=== PATIENT | male | born 1985 | race Caucasian/White ===

== ENCOUNTER 2017-05-29 23:56 | Emergency (ER) | payer BC, OTHER ==
--- NOTE | 2017-05-30 01:02 | ED ---
Upper Extremity HPI - General Chief Complaint: Extremity Injury, Upper Stated Complaint: R Shoulder Injury Time Seen by Provider: 05/30/17 00:14 Source: patient Mode of arrival: ambulatory Limitations: no limitations - History of Present Illness Initial Comments: This patient is a 31-year-old man who presents to be evaluated for right shoulder pain that is been going on since sometime in March, when he injured his shoulder at work. 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 He indicates the area just above the right scapula and the right trapezius area. The patient states that the pain is somewhat variable, worsening if he attempts to raise his arm above the level of his shoulder. He is denying any weakness or numbness of the extremity. He states that the pain seems to get better with resting the right arm. Patient is right-handed. He has not been seen previously for this injury. MD Complaint: Injury to:: right, shoulder Onset/Timin -: month(s) Other Extremity Injury: Shoulder: Right Other Injuries: none Handedness: right Place: work Improves With: immobilization Worsens With: movement of extremity Context: injury Associated Symptoms: heard/felt popping sensat - Related Data Previous Rx's Medication Instructions Recorded Ibuprofen [Motrin] 600 mg PO Q8HR PRN #20 tab 05/30/17 traMADol HCl [Ultram] 50 mg PO Q6H PRN #20 tab 05/30/17 Allergies Allergy/AdvReac Type Severity Reaction Status Date / Time No Known Allergies Allergy Verified 05/30/17 00:08 Review of Systems ROS Statement: Those systems with pertinent positive or pertinent negative responses have been documented in the HPI. ROS Other: All systems not noted in ROS Statement are negative. Constitutional: Denies: fever, weakness Respiratory: Denies: dyspnea Cardiovascular: Denies: chest pain, palpitations Musculoskeletal: Reports: as per HPI, arthralgia. Denies: back pain, joint swelling Neurological: Denies: headache, weakness, numbness, paresthesias Past Medical History Past Medical History: No Reported History History of Any Multi-Drug Resistant Organisms: None Reported Past Surgical History: No Surgical Hx Reported Past Psychological History: Anxiety, Depression Smoking Status: Current every day smoker Past Alcohol Use History: Occasional Past Drug Use History: None Reported General Exam Limitations: no limitations General appearance: alert, in no apparent distress Head exam: Present: atraumatic, normocephalic Eye exam: Present: normal appearance Neck exam: Present: normal inspection, full ROM. Absent: tenderness, meningismus Extremities exam: Present: normal inspection, tenderness, normal capillary refill Right Shoulder Exam: Present: normal inspection, tenderness, other (The patient has some mild tenderness to palpation of the right trapezius muscle. he has pain with internal rotation at the shoulder.). Absent: full ROM, swelling, abrasion , laceration, ecchymosis, deformity, crepitus, dislocation, erythema, tenderness over AC joint Upper Arm exam: Present: normal inspection, full ROM. Absent: tenderness, swelling Elbow exam: Present: normal inspection, full ROM. Absent: tenderness, swelling Forearm Wrist exam: Present: normal inspection, full ROM. Absent: tenderness, swelling Hand Wrist exam: Present: normal inspection, full ROM. Absent: tenderness, swelling Neuro motor exam: Present: wrist extension intact, thumb opposition intact, thumb IP flexion intact, thumb adduction intact, fingers 2-5 abduction intact Neurosensory exam: Present: radial nerve intact, ulnar nerve intact, median nerve intact Vascular: Present: normal capillary refill Back exam: Absent: paraspinal tenderness, vertebral tenderness Neurological exam: Present: alert. Absent: motor sensory deficit Skin exam: Present: warm, dry, intact, normal color. Absent: rash Course Vital Signs 05/30/17 00:06 Temperature 98.2 F Pulse Rate 84 Respiratory 16 Rate Blood Pressure 122/72 O2 Sat by Pulse 99 Oximetry Disposition Clinical Impression: Shoulder injury Disposition: HOME SELF-CARE Condition: Good Instructions: Rotator Cuff Injury (ED) Prescriptions: Ibuprofen [Motrin] 600 mg PO Q8HR PRN #20 tab PRN Reason: Pain traMADol HCl [Ultram] 50 mg PO Q6H PRN #20 tab PRN Reason: Pain Referrals: None,Stated [Primary Care Provider] - 1-2 days
--- NOTE | 2017-05-30 01:06 | XR ---
EXAMINATION TYPE: XR shoulder complete RT DATE OF EXAM: 05/30/2017 COMPARISON: NONE HISTORY: Shoulder pain TECHNIQUE: 3 views FINDINGS: I see no fracture nor dislocation. Joint spaces are normal. There are no pathologic calcifi cations. IMPRESSION: Negative right shoulder exam.
[2017-05-30 01:33] VITALS: BP 118/59; PULSE 67; RESP 18; TEMP 98
== END 2017-05-30 01:32 | disposition home or self-care (01) ==
LOC: EC 23:56
DX: S49.91XA Unspecified injury of right shoulder and upper arm, initial encounter (principal); F17.200 Nicotine dependence, unspecified, uncomplicated; X50.0XXA Overexertion from strenuous movement or load, initial encounter; Y93.89 Activity, other specified; Y92.69 Other specified industrial and construction area as the place of occurrence of the external cause; Y99.0 Civilian activity done for income or pay
CPT/HCPCS: 99283

== ENCOUNTER 2019-04-18 17:09 | Emergency (ER) | payer BC, OTHER ==
[2019-04-18 17:36] VITALS: TEMP 99.1
[2019-04-18] MEDS ORDERED: ORPHENADRINE 30 MG/ML 2 ML VIAL IM STA (18:37)
[2019-04-18] MEDS ORDERED: KETOROLAC 30 MG/ML 1 ML VIAL IM STA (18:37)
--- NOTE | 2019-04-18 18:41 | ED ---
General Adult HPI - General Chief complaint: Back Pain/Injury Stated complaint: [facility] - back injury Time Seen by Provider: 04/18/19 18:09 Source: patient, RN notes reviewed Mode of arrival: ambulatory Limitations: no limitations - History of Present Illness Initial comments: 33-year-old male presents to the emergency department for a chief complaint of back pain. Patient states he has had back pain for about 4 hours. States he was bending down to pick something up and felt a sudden pain in his low back. States the pain radiates down to his bilateral knees with mild tingling. Denies numbness of the saddle area. Denies any weakness of the lower extremities. Denies any bladder or bowel changes. Denies fevers or chills. States he saw his doctor and they wanted him to come to the emergency department for x- rays.Patient has no other complaints at this time including shortness of breath, chest pain, abdominal pain, nausea or vomiting, headache, or visual changes. - Related Data Previous Rx's Medication Instructions Recorded Ibuprofen [Motrin] 600 mg PO Q8HR PRN #20 tab 05/30/17 traMADol HCl [Ultram] 50 mg PO Q6H PRN #20 tab 05/30/17 Allergies Allergy/AdvReac Type Severity Reaction Status Date / Time No Known Allergies Allergy Verified 05/30/17 00:08 Review of Systems ROS Statement: Those systems with pertinent positive or pertinent negative responses have been documented in the HPI. ROS Other: All systems not noted in ROS Statement are negative. Past Medical History Past Medical History: No Reported History History of Any Multi-Drug Resistant Organisms: None Reported Past Surgical History: No Surgical Hx Reported Past Psychological History: Anxiety, Depression, PTSD Smoking Status: Current every day smoker Past Alcohol Use History: Occasional Past Drug Use History: None Reported General Exam Limitations: no limitations General appearance: alert, in no apparent distress (Patient sitting in bed crosslegged talking on the phone, no distress) Head exam: Present: atraumatic, normocephalic, normal inspection Eye exam: Present: normal appearance, PERRL, EOMI. Absent: scleral icterus, conjunctival injection, periorbital swelling ENT exam: Present: normal exam, mucous membranes moist Neck exam: Present: normal inspection, full ROM. Absent: tenderness, meningismus, lymphadenopathy Respiratory exam: Present: normal lung sounds bilaterally. Absent: respiratory distress, wheezes, rales, rhonchi, stridor Cardiovascular Exam: Present: regular rate, normal rhythm, normal heart sounds. Absent: systolic murmur, diastolic murmur, rubs, gallop, clicks GI/Abdominal exam: Present: soft, normal bowel sounds. Absent: distended, tenderness, guarding, rebound, rigid Extremities exam: Present: normal capillary refill (cap refill less than 2 seconds, DP pulse 2+ and lower extremities and equal bilaterally), other (Sensation intact in lower extremities bilaterally. Strength is 5 out of 5 in lower extremities bilaterally) Back exam: Absent: CVA tenderness (R), CVA tenderness (L), vertebral tenderness (Patient has pain with flexion of the lumbar spine but is able to flex to about 60) Course Vital Signs 04/18/19 04/18/19 04/18/19 17:34 17:35 18:35 Temperature 99.1 F Pulse Rate 103 H 95 Respiratory 19 20 20 Rate Blood Pressure 147/80 145/78 O2 Sat by Pulse 100 100 Oximetry Medical Decision Making - Medical Decision Making Neurovascular status intact in the lower extremities. Sensation intact throughout lower extremities. Patient does not have any red flag symptoms. Patient was sent over for x-ray of the lumbar spine by his doctor. I discussed that this is unlikely to demonstrate any bony abnormalities as mechanism is not consistent with fracture and he may need an outpatient MRI. Patient however says his doctor told him to get an x-ray and he wants this done. X-ray of the lumbar spine shows a normal lumbar spine. No fracture. Patient was given Toradol and Norflex here in the emergency department. Patient will be given outpatient muscle relaxers however discussed not driving or operating machinery while taking these. Patient will also be given steroids. He will follow up with his appointment on Thursday. He will return here if he has any worsening symptoms. I discussed these in depth with patient including numbness of the saddle area, loss of bladder or bowel, weakness of the legs. Disposition Clinical Impression: Mechanical back pain Disposition: HOME SELF-CARE Condition: Good Instructions (If sedation given, give patient instructions): Acute Low Back Pain (ED) Additional Instructions: Please follow up at your appointment in 2 days. Continue to take Motrin and Tylenol for pain. Take steroid as directed and muscle relaxer as needed. Do not drive or operate machinery while taking muscle relaxer. Make sure to eat something while taking both Motrin and the steroid as this could cause stomach discomfort. If you have any worsening symptoms return to the emergency department. These may include but are not limited to numbness of the saddle area, weakness of the legs, worsening pain, changes in bladder or bowel function, or fevers. Is patient prescribed a controlled substance at d/c from ED?: No Referrals: Minerva Kohler MD [REFERRING] - 1-2 days Time of Disposition: 19:07
--- NOTE | 2019-04-18 18:53 | XR ---
EXAMINATION TYPE: XR lumbar spine 2 or 3V DATE OF EXAM: 04/18/2019 COMPARISON: NONE HISTORY: Back pain TECHNIQUE: 3 views FINDINGS: Lumbar vertebra have fairly normal alignment. Disc spaces are normal. Posterior elements ar e intact. Sacroiliac joints appear normal. IMPRESSION: Normal lumbar spine exam. No fracture.
[2019-04-18 18:54] VITALS: RESP 20
[2019-04-18 18:55] VITALS: BP 145/78; PULSE 95
== END 2019-04-18 19:19 | disposition home or self-care (01) ==
LOC: EC 17:09
DX: M54.5 Low back pain (principal); F17.200 Nicotine dependence, unspecified, uncomplicated
CPT/HCPCS: 72100; 99283; 96372 ×2; J2360; J1885

== ENCOUNTER 2022-08-21 19:01 | Emergency (ER) | payer BC, OTHER ==
--- NOTE | 2022-08-21 20:09 | ED ---
Weakness HPI - General Chief complaint: Weakness Stated complaint: dizzy weakness Time Seen by Provider: 08/21/22 20:06 Source: patient, RN notes reviewed Mode of arrival: ambulatory Limitations: no limitations - History of Present Illness Initial comments: Patient 36-year-old male presents to the emergency department for weakness. Patient has upper respiratory symptoms since Thursday including congestion, productive cough, fever. He also reports nausea, vomiting, generalized weakness, lightheadedness. No chest pain or shortness of breath. No abdominal pain. The whole family is sick at home with cold symptoms. - Related Data Previous Rx's Medication Instructions Recorded Ibuprofen [Motrin] 600 mg PO Q8HR PRN #20 tab 05/30/17 traMADol HCl [Ultram] 50 mg PO Q6H PRN #20 tab 05/30/17 Cyclobenzaprine [Flexeril] 10 mg PO TID #10 tab 04/18/19 predniSONE 50 mg PO DAILY #5 tablet 04/18/19 Azithromycin [Zithromax Z Pack] 1 tab PO DIRECTED #6 tab 08/21/22 Metoclopramide [Reglan] 10 mg PO TID PRN #15 tab 08/21/22 Allergies Allergy/AdvReac Type Severity Reaction Status Date / Time No Known Allergies Allergy Verified 08/21/22 19:17 Review of Systems ROS Statement: Those systems with pertinent positive or pertinent negative responses have been documented in the HPI. ROS Other: All systems not noted in ROS Statement are negative. Past Medical History Past Medical History: No Reported History History of Any Multi-Drug Resistant Organisms: None Reported Past Surgical History: No Surgical Hx Reported Past Psychological History: Anxiety, Depression, PTSD Past Alcohol Use History: Occasional Past Drug Use History: None Reported General Exam - General Exam Comments Initial Comments: Visual Physical Exam Vital signs reviewed General: Well-appearing, nontoxic, no acute distress. Head: Normocephalic, atraumatic Eyes: PERRLA, EOMI ENT: Airway patent Chest: Nonlabored breathing Skin: No visual rash, normal skin tone Neuro: Alert and oriented 3 Musculoskeletal: No gross abnormalities Limitations: no limitations General appearance: alert, in no apparent distress Head exam: Present: atraumatic, normocephalic, normal inspection Eye exam: Present: normal appearance, PERRL, EOMI. Absent: scleral icterus, conjunctival injection, periorbital swelling Respiratory exam: Present: wheezes (mild upper lung field). Absent: normal lung sounds bilaterally, respiratory distress, rales, rhonchi, stridor Cardiovascular Exam: Present: normal rhythm, tachycardia, normal heart sounds. Absent: regular rate, systolic murmur, diastolic murmur, rubs, gallop, clicks GI/Abdominal exam: Present: soft, normal bowel sounds. Absent: distended, tenderness, guarding, rebound, rigid Neurological exam: Present: alert, oriented X3, CN II-XII intact Psychiatric exam: Present: normal affect, normal mood Skin exam: Present: warm, dry, intact, normal color. Absent: rash Course Vital Signs 08/21/22 08/21/22 08/21/22 19:14 21:34 21:48 Temperature 99.5 F 98.6 F Pulse Rate 115 H 101 H Respiratory 16 20 20 Rate Blood Pressure 110/65 126/84 O2 Sat by Pulse 97 99 Oximetry 08/21/22 08/21/22 08/21/22 22:10 22:16 22:50 Temperature 100.2 F H Pulse Rate 100 104 H 114 H Respiratory 20 Rate Blood Pressure 129/76 O2 Sat by Pulse 97 Oximetry Medical Decision Making - Medical Decision Making Was pt. sent in by a medical professional or institution (, PA, CREDIT SPECIALIST, urgent care, hospital, or longterm...) When possible be specific @ -No Did you speak to anyone other than the patient for history (EMS, parent, family, police, friend...)? What history was obtained from this source @ -No Did you review nursing and triage notes (agree or disagree)? Why? @ -I reviewed and agree with nursing and triage notes Were old charts reviewed (outside hosp., previous admission, EMS record, old EKG, old radiological studies, urgent care reports/EKG's, longterm records)? Report findings @ -No old charts were reviewed Differential Diagnosis (chest pain, altered mental status, abdominal pain women, abdominal pain men, vaginal bleeding, weakness, fever, dyspnea, syncope, headache, dizziness, GI bleed, back pain, seizure, CVA, palpatations, mental health)? @ -URI, sinusitus,strep pharyngitis, viral pharyngitis, pneumonia, bronchitis- this list is not meant to be all-inclusive EKG interpreted by me (3pts min.). @ -As above X-rays interpreted by me (1pt min.). @ -Yes, chest x-ray negative for pneumonia and other acute process CT interpreted by me (1pt min.). @ -None done U/S interpreted by me (1pt. min.). @ -None done What testing was considered but not performed or refused? (CT, X-rays, U/S, labs)? Why? @ -None What meds were considered but not given or refused? Why? @ -None Did you discuss the management of the patient with other professionals (professionals i.e. , PA, CREDIT SPECIALIST, lab, RT, psych nurse, addiction social worker, distribution agent, teacher, space officer, binder caser)? Give summary @ -No Was smoking cessation discussed for >3mins.? @ -No Was critical care preformed (if so, how long)? @ -No Were there social determinants of health that impacted care today? How? (Homelessness, low income, unemployed, alcoholism, drug addiction, transportation, low edu. Level, literacy, decrease access to med. care, correction, rehab)? @ -No Was there de-escalation of care discussed even if they declined (Discuss DNR or withdrawal of care, Hospice)? DNR status @ -No What co-morbidities impacted this encounter? (DM, HTN, Smoking, COPD, CAD, Cancer, CVA, ARF, Chemo, Hep., AIDS, mental health diagnosis, sleep apnea, morbid obesity)? @ -None Was patient admitted / discharged? Hospital course, mention meds given and route, prescriptions, significant lab abnormalities, going to OR and other pertinent info. @ -Patient presented with upper respiratory symptoms. Patient sounds very congested. There is mild leukocytosis at 12.5, likely reactive. There is hypokalemia 2.8, I suspect secondary to vomiting. COVID-19, RSV, influenza, strep not detected. Chest x-ray negative for pneumonia. Patient given a breathing treatment for mild wheezing which improved lung sounds. Electrolytes replenished. Patient did develop a fever and mild tachycardia which I suspect is related to fever. He is not short of breath, no chest pain, no hypoxia. He had no further episodes of vomiting in the emergency department. He will be discharged with Z-Isidro for acute bronchitis and Reglan for vomiting. Discussed strict return parameters. I advised patient to follow up with primary care provider for repeat laboratory studies on Thursday. Patient states he has not a primary care provider he is encouraged filum. Undiagnosed new problem with uncertain prognosis? @ -No Drug Therapy requiring intensive monitoring for toxicity (Heparin, Nitro, Insulin, Cardizem)? @ -No Were any procedures done? @ -No Diagnosis/symptom? @ acute bronchitis Acute, or Chronic, or Acute on Chronic? @ -acute Uncomplicated (without systemic symptoms) or Complicated (systemic symptoms)? @ -uncomplicated Side effects of treatment? @ -No Exacerbation, Progression, or Severe Exacerbation? @ -No Poses a threat to life or bodily function? How? (Chest pain, USA, CT, pneumonia, PE, COPD, DKA, ARF, appy, cholecystitis, CVA, Diverticulitis, Homicidal, Suicidal, threat to staff... and all critical care pts) @ -No Dr. Puga is my attending - Lab Data Result diagrams: 08/21/22 21:31 08/21/22 23:00 Lab Results 08/21/22 08/21/22 08/21/22 Range/Units 21:12 21:12 21:31 WBC 12.5 H (3.8-10.6) k/uL RBC 5.06 (4.30-5.90) m/uL Hgb 15.2 (13.0-17.5) gm/dL Hct 41.4 (39.0-53.0) % MCV 81.9 (80.0-100.0) fL MCH 30.0 (25.0-35.0) pg MCHC 36.7 (31.0-37.0) g/dL RDW 12.5 (11.5-15.5) % Plt Count 199 (150-450) k/uL MPV 8.6 Neutrophils % 81 % Lymphocytes % 10 % Monocytes % 6 % Eosinophils % 0 % Basophils % 0 % Neutrophils # 10.1 H (1.3-7.7) k/uL Lymphocytes # 1.2 (1.0-4.8) k/uL Monocytes # 0.8 (0-1.0) k/uL Eosinophils # 0.0 (0-0.7) k/uL Basophils # 0.0 (0-0.2) k/uL Hyperchromasia Slight Sodium (137-145) mmol/L Potassium (3.5-5.1) mmol/L Chloride (98-107) mmol/L Carbon Dioxide (22-30) mmol/L Anion Gap mmol/L BUN (9-20) mg/dL Creatinine (0.66-1.25) mg/dL Est GFR (CKD-EPI)AfAm (>60 ml/min/1.73 sqM) Est GFR (CKD-EPI)NonAf (>60 ml/min/1.73 sqM) Glucose (74-99) mg/dL Calcium (8.4-10.2) mg/dL Total Bilirubin (0.2-1.3) mg/dL AST (17-59) U/L ALT (4-49) U/L Alkaline Phosphatase (38-126) U/L Total Protein (6.3-8.2) g/dL Albumin (3.5-5.0) g/dL Influenza Type A (PCR) Not Detected (Not Detectd) Influenza Type B (PCR) Not Detected (Not Detectd) RSV (PCR) Not Detected (Not Detectd) SARS-CoV-2 (PCR) Not Detected (Not Detectd) Group A Strep (PCR) NOT DETECTED (Not Detectd) 08/21/22 08/21/22 Range/Units 21:31 23:00 WBC (3.8-10.6) k/uL RBC (4.30-5.90) m/uL Hgb (13.0-17.5) gm/dL Hct (39.0-53.0) % MCV (80.0-100.0) fL MCH (25.0-35.0) pg MCHC (31.0-37.0) g/dL RDW (11.5-15.5) % Plt Count (150-450) k/uL MPV Neutrophils % % Lymphocytes % % Monocytes % % Eosinophils % % Basophils % % Neutrophils # (1.3-7.7) k/uL Lymphocytes # (1.0-4.8) k/uL Monocytes # (0-1.0) k/uL Eosinophils # (0-0.7) k/uL Basophils # (0-0.2) k/uL Hyperchromasia Sodium 133 L 132 L (137-145) mmol/L Potassium 3.7 2.8 L (3.5-5.1) mmol/L Chloride 88 L 93 L (98-107) mmol/L Carbon Dioxide 30 28 (22-30) mmol/L Anion Gap 15 11 mmol/L BUN 17 16 (9-20) mg/dL Creatinine 1.07 1.00 (0.66-1.25) mg/dL Est GFR (CKD-EPI)AfAm >90 >90 (>60 ml/min/1.73 sqM) Est GFR (CKD-EPI)NonAf >90 >90 (>60 ml/min/1.73 sqM) Glucose 109 H 111 H (74-99) mg/dL Calcium 8.7 7.7 L (8.4-10.2) mg/dL Total Bilirubin 1.2 1.0 (0.2-1.3) mg/dL AST 33 25 (17-59) U/L ALT 26 23 (4-49) U/L Alkaline Phosphatase 76 72 (38-126) U/L Total Protein 7.5 6.2 L (6.3-8.2) g/dL Albumin 4.4 3.6 (3.5-5.0) g/dL Influenza Type A (PCR) (Not Detectd) Influenza Type B (PCR) (Not Detectd) RSV (PCR) (Not Detectd) SARS-CoV-2 (PCR) (Not Detectd) Group A Strep (PCR) (Not Detectd) Disposition Clinical Impression: Acute bronchitis Disposition: HOME SELF-CARE Condition: Good Instructions (If sedation given, give patient instructions): Acute Bronchitis (ED) Additional Instructions: Take medication as directed. Increase fluid intake. I encourage you to establi sh care with a primary care provider. Return to the emergency department if you experience new, concerning, or worsening symptoms. Prescriptions: Metoclopramide [Reglan] 10 mg PO TID PRN #15 tab PRN Reason: Nausea Azithromycin [Zithromax Z Pack] 1 tab PO DIRECTED #6 tab Is patient prescribed a controlled substance at d/c from ED?: No Referrals: None,Stated [Primary Care Provider] - 1-2 days
[2022-08-21] MEDS ORDERED: SODIUM CHLORIDE 0.9% 1,000 ML IV STA (21:13)
--- NOTE | 2022-08-21 21:20 | XR ---
EXAMINATION: XR chest 2V: 08/21/2022 8:24 PM CLINICAL INDICATION: productive cough TECHNIQUE: Departmental protocol COMPARISON: None FINDINGS: The lungs are clear. The pleural spaces are negative. The cardiac silhouette is not enlarged. The remainder of the mediastinal silhouette is unremarkable. The skeletal structures and soft tissues are negative for acute findings. IMPRESSION: No definite acute radiographic process.
[2022-08-21] MEDS ORDERED: FLUTICASONE 50MCG/SPRAY NASAL 16GM EA NOSTRIL ONE (21:30)
[2022-08-21] MEDS ORDERED: ALBUTEROL NEBULIZED 2.5 MG/3 ML INHALATION STA (21:31)
[2022-08-21 21:41] VITALS: RESP 20
[2022-08-21] MEDS ORDERED: ONDANSETRON 4 MG/2 ML VIAL IVP STA (21:50)
[2022-08-21 22:13] LABS: Basophils % (A) 0 %; Eosinophils % (A) 0 %; HCT 41.4 % (39.0-53.0); HGB 15.2 gm/dL (13.0-17.5); Hyperchromasia Slight; Lymphocytes # (A) 1.2 k/uL (1.0-4.8); Lymphocytes % (A) 10 %; MCHC 36.7 g/dL (31.0-37.0); MCV 81.9 fL (80.0-100.0); Mean Platelet Volume 8.6; Monocytes # (A) 0.8 k/uL (0-1.0); Monocytes % (A) 6 %; Neutrophils # (A) 10.1 k/uL (1.3-7.7); Neutrophils % (A) 81 %; Platelet Count 199 k/uL (150-450); RBC 5.06 m/uL (4.30-5.90); RDW 12.5 % (11.5-15.5); WBC 12.5 k/uL (3.8-10.6)
[2022-08-21 22:33] LABS: ALT 26 U/L (4-49); AST 33 U/L (17-59); African American GFR (CKD) >90 (>60 ml/min/1.73 sqM); Albumin 4.4 g/dL (3.5-5.0); Alkaline Phosphatase 76 U/L (38-126); Anion Gap 15 mmol/L; Blood Urea Nitrogen 17 mg/dL (9-20); Calcium 8.7 mg/dL (8.4-10.2); Carbon Dioxide 30 mmol/L (22-30); Chloride 88 mmol/L (98-107); Glucose 109 mg/dL (74-99); Non-African American GFR(CKD) >90 (>60 ml/min/1.73 sqM); Sodium 133 mmol/L (137-145); Total Bilirubin 1.2 mg/dL (0.2-1.3); Total Protein 7.5 g/dL (6.3-8.2)
[2022-08-21 22:36] LABS: Potassium 3.7 mmol/L (3.5-5.1)
[2022-08-21] MEDS ORDERED: AZITHROMYCIN 250 MG TAB PO STA (22:44)
[2022-08-21 22:52] VITALS: BP 129/76; PULSE 114; TEMP 100.2
[2022-08-21 23:14] LABS: ALT 23 U/L (4-49); AST 25 U/L (17-59); African American GFR (CKD) >90 (>60 ml/min/1.73 sqM); Albumin 3.6 g/dL (3.5-5.0); Alkaline Phosphatase 72 U/L (38-126); Anion Gap 11 mmol/L; Blood Urea Nitrogen 16 mg/dL (9-20); Calcium 7.7 mg/dL (8.4-10.2); Carbon Dioxide 28 mmol/L (22-30); Chloride 93 mmol/L (98-107); Glucose 111 mg/dL (74-99); Non-African American GFR(CKD) >90 (>60 ml/min/1.73 sqM); Potassium 2.8 mmol/L (3.5-5.1); Sodium 132 mmol/L (137-145); Total Protein 6.2 g/dL (6.3-8.2)
[2022-08-21] MEDS ORDERED: POTASSIUM CHLORIDE ER 20 MEQ TAB.ER PO STA (23:24)
[2022-08-21] MEDS ORDERED: PANTOPRAZOLE 40 MG/10 ML VIAL IVP STA (23:25)
[2022-08-21] MEDS ORDERED: CALCIUM CARBONATE 500 MG CHEWABLE PO STA (23:25)
[2022-08-21] MEDS ORDERED: KETOROLAC 15 MG/ML 1 ML VIAL IVP STA (23:28)
== END 2022-08-22 00:16 | disposition home or self-care (01) ==
LOC: EC 19:01
DX: J20.9 Acute bronchitis, unspecified (principal); Z20.822 Contact with and (suspected) exposure to COVID-19; Z86.59 Personal history of other mental and behavioral disorders
CPT/HCPCS: 36415; 94640; 87651; 80053; 85025; 87636; 71046; 99285; 96374; 96375 ×2; 96361; J2405; J1885; C9113

== ENCOUNTER 2022-12-21 03:21 | Emergency (ER) | payer BC ==
[2022-12-21 03:31] VITALS: BP 123/80; PULSE 96; RESP 18; TEMP 98
[2022-12-21] MEDS ORDERED: LIDOCAINE 4% CREAM 5 GM TUBE TOPICAL STA (03:49)
[2022-12-21] MEDS ORDERED: LIDOCAINE 2% GLYDO JELLY 11 ML APPL MUCOUS MEM ONE (03:53)
--- NOTE | 2022-12-21 04:06 | ED ---
General Adult HPI - General Chief complaint: Skin/Abscess/Foreign Body Stated complaint: Blisters all over Time Seen by Provider: 12/21/22 03:35 Source: patient Mode of arrival: ambulatory Limitations: no limitations - History of Present Illness Initial comments: 37-year-old male with no reported past medical history who presents to the emergency department with a rash. States that he has developed blisters all over his body. He reports that they are on his face, in his mouth, on his hands and feet as well as his buttock. States that his daughter was recently diagnosed with hpow-xuwn-eup-mouth. He is unsure if adults are able to contract the virus. He does admit to some painful swallowing. He has not been taking any medications for his symptoms. He is not immunocompromised. Denies fevers. No nausea or vomiting. Denies diarrhea. No abdominal pain. No chest pain or shortness of breath. No other alleviating, precipitating or modifying factors - Related Data Previous Rx's Medication Instructions Recorded Ibuprofen [Motrin] 600 mg PO Q8HR PRN #20 tab 05/30/17 traMADol HCl [Ultram] 50 mg PO Q6H PRN #20 tab 05/30/17 Cyclobenzaprine [Flexeril] 10 mg PO TID #10 tab 04/18/19 predniSONE 50 mg PO DAILY #5 tablet 04/18/19 Azithromycin [Zithromax Z Pack] 1 tab PO DIRECTED #6 tab 08/21/22 Metoclopramide [Reglan] 10 mg PO TID PRN #15 tab 08/21/22 Lidocaine 4% Cream [Lmx 4] 1 applic TOPICAL TID PRN #30 gm 12/21/22 Lidocaine Viscous 2% [Xylocaine 10 ml MUCOUS MEM BID PRN #150 ml 12/21/22 Viscous] Mupirocin 2% Oint [Bactroban 2% 1 applic TOPICAL TID 5 Days #22 gm 12/21/22 Oint] Allergies Allergy/AdvReac Type Severity Reaction Status Date / Time moxalactam Allergy Rash/Hives Verified 12/21/22 03:32 Review of Systems ROS Statement: Those systems with pertinent positive or pertinent negative responses have been documented in the HPI. ROS Other: All systems not noted in ROS Statement are negative. Past Medical History Past Medical History: No Reported History History of Any Multi-Drug Resistant Organisms: None Reported Past Surgical History: No Surgical Hx Reported Past Psychological History: Anxiety, Depression, PTSD Smoking Status: Former smoker Past Alcohol Use History: Occasional Past Drug Use History: None Reported General Exam Limitations: no limitations General appearance: alert, in no apparent distress Head exam: Present: atraumatic, normocephalic, normal inspection Eye exam: Present: normal appearance, PERRL, EOMI. Absent: scleral icterus, conjunctival injection, periorbital swelling ENT exam: Present: normal exam, mucous membranes moist Neck exam: Present: normal inspection. Absent: tenderness, meningismus, lymphadenopathy Respiratory exam: Present: normal lung sounds bilaterally. Absent: respiratory distress, wheezes, rales, rhonchi, stridor Cardiovascular Exam: Present: regular rate, normal rhythm, normal heart sounds. Absent: systolic murmur, diastolic murmur, rubs, gallop, clicks GI/Abdominal exam: Present: soft, normal bowel sounds. Absent: distended, tenderness, guarding, rebound, rigid Extremities exam: Present: normal inspection, full ROM, normal capillary refill. Absent: tenderness, pedal edema, joint swelling, calf tenderness Back exam: Present: normal inspection Neurological exam: Present: alert, oriented X3, CN II-XII intact Psychiatric exam: Present: normal affect, normal mood Skin exam: Present: warm, dry, normal color, rash (Patient has a rash which is noted on his scalp, conde, intraoral, palmar and plantar surfaces of the hands and feet. Patient also has some lesions on his gluteal cleft. They are vesicular and scabbed over) Course Vital Signs 12/21/22 03:29 Temperature 98 F Pulse Rate 96 Respiratory 18 Rate Blood Pressure 123/80 O2 Sat by Pulse 99 Oximetry Medical Decision Making - Medical Decision Making Was pt. sent in by a medical professional or institution (, PA, LINE OPERATOR, urgent care, hospital, or long term...) When possible be specific @ -No Did you speak to anyone other than the patient for history (EMS, parent, family, police, friend...)? What history was obtained from this source @ -No Did you review nursing and triage notes (agree or disagree)? Why? @ -I reviewed and agree with nursing and triage notes Were old charts reviewed (outside hosp., previous admission, EMS record, old EKG, old radiological studies, urgent care reports/EKG's, long term records)? Report findings @ -No old charts were reviewed Differential Diagnosis (chest pain, altered mental status, abdominal pain women, abdominal pain men, vaginal bleeding, weakness, fever, dyspnea, syncope, headache, dizziness, GI bleed, back pain, seizure, CVA, palpatations, mental health, musculoskeletal)? @ -Shingles, chickenpox, acns-clml-ozx-mouth, impetigo EKG interpreted by me (3pts min.). @ -Not done X-rays interpreted by me (1pt min.). @ -None done CT interpreted by me (1pt min.). @ -None done U/S interpreted by me (1pt. min.). @ -None done What testing was considered but not performed or refused? (CT, X-rays, U/S, labs)? Why? @ -None What meds were considered but not given or refused? Why? @ -None Did you discuss the management of the patient with other professionals (professionals i.e. , PA, LINE OPERATOR, lab, RT, psych nurse, social media community manager, creative manager, teacher, railroad police officer, renal case manager)? Give summary @ -No Was smoking cessation discussed for >3mins.? @ -No Was critical care preformed (if so, how long)? @ -No Were there social determinants of health that impacted care today? How? (Homelessness, low income, unemployed, alcoholism, drug addiction, transporta tion, low edu. Level, literacy, decrease access to med. care, snf, rehab)? @ -No Was there de-escalation of care discussed even if they declined (Discuss DNR or withdrawal of care, Hospice)? DNR status @ -No What co-morbidities impacted this encounter? (DM, HTN, Smoking, COPD, CAD, Cancer, CVA, ARF, Chemo, Hep., AIDS, mental health diagnosis, sleep apnea, morbid obesity)? @ -None Was patient admitted / discharged? Hospital course, mention meds given and route, prescriptions, significant lab abnormalities, going to OR and other pertinent info. @ -Upon arrival I did evaluate the patient in room 4. Rash appears consistent with xlmq-uuix-pgs-mouth. Patient does have some honey crusted lesions which are concerning for possible overlying impetigo. Patient will be discharged home and instructed to take Motrin and Tylenol alternating for pain control. He will also be given a prescription for Bactroban that he is to use on his conde where there are honey crusted lesions. He is also given a prescription for viscous lidocaine for his oral lesions and lidocaine cream to help his skin lesions. He is aware that he is contagious. He needs to follow-up with his primary care doctor within 2-4 days or return for any new or worsening symptoms. Patient was agreeable as planned he was discharged in stable condition Undiagnosed new problem with uncertain prognosis? @ -No Drug Therapy requiring intensive monitoring for toxicity (Heparin, Nitro, Insulin, Cardizem)? @ -No Were any procedures done? @ -No Diagnosis/symptom? @ -Acute vesicular rash, acute yzzx-mvxv-sdm-mouth Acute, or Chronic, or Acute on Chronic? @ -acute Uncomplicated (without systemic symptoms) or Complicated (systemic symptoms)? @ -uncomplicated Side effects of treatment? @ -No Exacerbation, Progression, or Severe Exacerbation? @ -No Poses a threat to life or bodily function? How? (Chest pain, USA, CT, pneumonia, PE, COPD, DKA, ARF, appy, cholecystitis, CVA, Diverticulitis, Homicidal, Suicidal, threat to staff... and all critical care pts) @ -No Disposition Clinical Impression: Hand, foot and mouth disease, Impetigo Disposition: HOME SELF-CARE Condition: Stable Instructions (If sedation given, give patient instructions): Hand, Foot, and Mouth Disease (ED) Additional Instructions: Please use the lidocaine cream on your feet and buttocks. I recommend you use the antibiotic cream on your face and scalp. Alternate taking Motrin and Tylenol for pain. Use the viscous lidocaine to gargle with. Return for any new or worsening symptoms Prescriptions: Mupirocin 2% Oint [Bactroban 2% Oint] 1 applic TOPICAL TID 5 Days #22 gm Lidocaine 4% Cream [Lmx 4] 1 applic TOPICAL TID PRN #30 gm PRN Reason: Skin Irritation Lidocaine Viscous 2% [Xylocaine Viscous] 10 ml MUCOUS MEM BID PRN #150 ml PRN Reason: Mouth Irritation Is patient prescribed a controlled substance at d/c from ED?: No Referrals: None,Stated [Primary Care Provider] - 1-2 days Time of Disposition: 04:06
== END 2022-12-21 04:23 | disposition home or self-care (01) ==
LOC: EC 03:21
DX: B08.4 Enteroviral vesicular stomatitis with exanthem (principal); L01.00 Impetigo, unspecified; Z87.891 Personal history of nicotine dependence; Z86.59 Personal history of other mental and behavioral disorders; Z88.8 Allergy status to other drugs, medicaments and biological substances
CPT/HCPCS: 99282

== ENCOUNTER 2023-12-28 23:40 | Emergency (ER) | payer OTHER, BC ==
--- NOTE | 2023-12-29 00:07 | ED ---
URI HPI - General Stated Complaint: Covid Time Seen by Provider: 12/29/23 00:06 Source: patient, RN notes reviewed Mode of arrival: ambulatory Limitations: no limitations - History of Present Illness Initial Comments: 38-year-old male presented to ER with a chief complaint of cough and headache. Patient states symptoms have been going on since Thursday. Patient has been taking wqwj-dxl-nhmfnht Tylenol, Mucinex and ibuprofen for symptom control. Patient denies any difficulty breathing. Patient does report symptoms have improved mildly today. Patient's and son have similar symptoms. Present patient's son recently tested positive for COVID-19. Patient denies any other acute complaints. - Related Data Previous Rx's Medication Instructions Recorded Ibuprofen [Motrin] 600 mg PO Q8HR PRN #20 tab 05/30/17 traMADol HCl [Ultram] 50 mg PO Q6H PRN #20 tab 05/30/17 Cyclobenzaprine [Flexeril] 10 mg PO TID #10 tab 04/18/19 predniSONE 50 mg PO DAILY #5 tablet 04/18/19 Azithromycin [Zithromax Z Pack] 1 tab PO DIRECTED #6 tab 08/21/22 Metoclopramide [Reglan] 10 mg PO TID PRN #15 tab 08/21/22 Lidocaine 4% Cream [Lmx 4] 1 applic TOPICAL TID PRN #30 gm 12/21/22 Lidocaine Viscous 2% [Xylocaine 10 ml MUCOUS MEM BID PRN #150 ml 12/21/22 Viscous] Mupirocin 2% Oint [Bactroban 2% 1 applic TOPICAL TID 5 Days #22 gm 12/21/22 Oint] Amoxic-Pot Clav 875-125Mg 1 tab PO Q12HR 7 Days #14 tab 01/08/23 [Augmentin 875-125] Allergies Allergy/AdvReac Type Severity Reaction Status Date / Time meloxicam Allergy Rash/Hives Verified 12/29/23 00:46 Review of Systems ROS Statement: Those systems with pertinent positive or pertinent negative responses have been documented in the HPI. ROS Other: All systems not noted in ROS Statement are negative. Past Medical History Past Medical History: No Reported History History of Any Multi-Drug Resistant Organisms: None Reported Past Surgical History: No Surgical Hx Reported Past Psychological History: Anxiety, Depression, PTSD Smoking Status: Former smoker Past Alcohol Use History: Occasional Past Drug Use History: None Reported General Exam General appearance: alert, in no apparent distress Eye exam: Present: normal appearance, PERRL, EOMI. Absent: scleral icterus, conjunctival injection, periorbital swelling ENT exam: Present: normal exam, normal oropharynx, mucous membranes moist Neck exam: Present: normal inspection. Absent: tenderness, meningismus, lymphadenopathy Respiratory exam: Present: normal lung sounds bilaterally. Absent: respiratory distress, wheezes, rales, rhonchi, stridor Cardiovascular Exam: Present: regular rate, normal rhythm, normal heart sounds. Absent: systolic murmur, diastolic murmur, rubs, gallop, clicks Neurological exam: Present: alert, oriented X3, CN II-XII intact Skin exam: Present: warm, dry, intact, normal color. Absent: rash Course Vital Signs 12/29/23 00:41 Temperature 98.2 F Pulse Rate 90 Respiratory 17 Rate Blood Pressure 125/87 O2 Sat by Pulse 96 Oximetry Medical Decision Making - Medical Decision Making Was pt. sent in by a medical professional or institution (Dr. PA, UTILIZATION MANAGER, urgent care, hospital, or usp...) When possible be specific @ -No Did you speak to anyone other than the patient for history (EMS, parent, family, police, friend...)? What history was obtained from this source @ -No Did you review nursing and triage notes (agree or disagree)? Why? @ -I reviewed and agree with nursing and triage notes Were old charts reviewed (outside hosp., previous admission, EMS record, old EKG, old radiological studies, urgent care reports/EKG's, usp records)? Report findings @ -No old charts were reviewed Differential Diagnosis (chest pain, altered mental status, abdominal pain women, abdominal pain men, vaginal bleeding, weakness, fever, dyspnea, syncope, headache, dizziness, GI bleed, back pain, seizure, CVA, palpatations, mental health, musculoskeletal)? @ -COVID, RSV, influenza, viral sinusitis, pneumonia this list is not meant to be all-inclusive EKG interpreted by me (3pts min.). @ -None done X-rays interpreted by me (1pt min.). @ -None done CT interpreted by me (1pt min.). @ -None done U/S interpreted by me (1pt. min.). @ -None done What testing was considered but not performed or refused? (CT, X-rays, U/S, labs)? Why? @ -None What meds were considered but not given or refused? Why? @ -None Did you discuss the management of the patient with other professionals (professionals i.e. , PA, UTILIZATION MANAGER, lab, RT, psych nurse, social science instructor, avionics supervisor, teacher, public health officer, rehabilitation case coordinator)? Give summary @ -No Was smoking cessation discussed for >3mins.? @ -No Was critical care preformed (if so, how long)? @ -No Were there social determinants of health that impacted care today? How? (Homelessness, low income, unemployed, alcoholism, drug addiction, transportation, low edu. Level, literacy, decrease access to med. care, senior living, rehab)? @ -No Was there de-escalation of care discussed even if they declined (Discuss DNR or withdrawal of care, Hospice)? DNR status @ -No What co-morbidities impacted this encounter? (DM, HTN, Smoking, COPD, CAD, Cancer, CVA, ARF, Chemo, Hep., AIDS, mental health diagnosis, sleep apnea, morbid obesity)? @ -None Was patient admitted / discharged? Hospital course, mention meds given and route, prescriptions, significant lab abnormalities, going to OR and other pertinent info. @ -Discharge. 38-year-old male presented to the ER with a chief complaint of cough. History and physical exam completed. Vitals within normal limits. Patient in no signs of acute distress. Exam benign. COVID-positive. Influenza and RSV negative. Reevaluation, patient resting comfortably in exam room in no signs of acute distress. Results discussed with patient, all questions answered. Strict return parameters discussed. Patient discharged in stable condition with follow-up to PCP. Patient verbally expressed understanding and agreement with care plan. Case discussed with ED attending, Dr. Puga. Undiagnosed new problem with uncertain prognosis? @ -No Drug Therapy requiring intensive monitoring for toxicity (Heparin, Nitro, Insulin, Cardizem)? @ -No Were any procedures done? @ -No Diagnosis/symptom? @ -COVID/viral sinusitis Acute, or Chronic, or Acute on Chronic? @ -Acute Uncomplicated (without systemic symptoms) or Complicated (systemic symptoms)? @ -Uncomplicated Side effects of treatment? @ -No Exacerbation, Progression, or Severe Exacerbation? @ -No Poses a threat to life or bodily function? How? (Chest pain, USA, ID, pneumonia, PE, COPD, DKA, ARF, appy, cholecystitis, CVA, Diverticulitis, Homicidal, Suicidal, threat to staff... and all critical care pts) @ -No - Lab Data Lab Results 12/29/23 Range/Units 00:13 Influenza Type A (PCR) Not Detected (Not Detectd) Influenza Type B (PCR) Not Detected (Not Detectd) RSV (PCR) Not Detected (Not Detectd) SARS-CoV-2 (PCR) Detected A (Not Detectd) Disposition Clinical Impression: Acute viral sinusitis, COVID Disposition: HOME SELF-CARE Condition: Stable Instructions (If sedation given, give patient instructions): COVID-19 (Coronavirus Disease 2019) (ED) Additional Instructions: You may take lgyt-ldp-irbcsqg Tylenol and Motrin for symptom control. Follow-up with PCP. Return to the ER for any new or worsening concerns. Is patient prescribed a controlled substance at d/c from ED?: No Referrals: None,Stated [Primary Care Provider] - 1-2 days Forms: Area PCPs Time of Disposition: 01:21
[2023-12-29 00:46] VITALS: BP 125/87; PULSE 90; RESP 17; TEMP 98.2
== END 2023-12-29 01:31 | disposition home or self-care (01) ==
LOC: EC 23:40
CPT/HCPCS: 87636; 99283